=== PATIENT | female | born 1965 | race Caucasian/White ===

== ENCOUNTER 2019-09-30 11:03 | Outpatient (CLI) | payer OTHER, SELFPAY ==
--- NOTE | ~2019-09-30 | MM_ITS ---
EXAMINATION: MM screening [place] BI w meseret HISTORY: Screening mammogram TECHNIQUE: Craniocaudal and mediolateral oblique 3-D tomosynthesis images were obtained and synthetic 2-D images were generated. CAD analysis was submitted and interpreted. COMPARISON: Comparison to multiple prior studies sequentially, with oldest reviewed study dated 11/01. BREAST PARENCHYMAL COMPOSITION: The breasts are heterogeneously dense, which may obscure small masses . FINDINGS: There is no evidence of suspicious mass, calcification, or architectural distortion to sugg est malignancy in either breast. There has been no suspicious interval change. IMPRESSION: 1. No mammographic evidence of malignancy. 2. Recommend routine screening mammography in one year. BI-RADS Category 1: Negative Reviewed, dictated and finalized at location A.
== END 2019-09-30 11:04 | disposition home or self-care (01) ==
PROVIDERS: PCP Internal Medicine; Visit Provider Obstetrics & Gynecology
DX: Z12.31 Encounter for screening mammogram for malignant neoplasm of breast (principal)
CPT/HCPCS: 77063; 77067

== ENCOUNTER 2020-10-03 10:31 | Outpatient (CLI) | payer OTHER, SELFPAY ==
--- NOTE | ~2020-10-03 | MM_ITS ---
EXAMINATION: MM screening [place] BI w meseret HISTORY: Screening TECHNIQUE: Craniocaudal and mediolateral oblique 3-D tomosynthesis images were obtained and synthetic 2-D images were generated. CAD analysis was submitted and interpreted. COMPARISON: Comparison to multiple prior studies sequentially, with oldest reviewed study dated 11/01. BREAST PARENCHYMAL COMPOSITION: The breasts are heterogeneously dense, which may obscure small masses . FINDINGS: There is no evidence of suspicious mass, calcification, or architectural distortion to sugg est malignancy in either breast. There has been no suspicious interval change. IMPRESSION: 1. No mammographic evidence of malignancy. 2. Recommend routine screening mammography in one year. BI-RADS Category 1: Negative Reviewed, dictated and finalized at location A.
== END 2020-10-03 10:32 | disposition home or self-care (01) ==
PROVIDERS: PCP Internal Medicine; Visit Provider Obstetrics & Gynecology
DX: Z12.31 Encounter for screening mammogram for malignant neoplasm of breast (principal)
CPT/HCPCS: 77063; 77067

== ENCOUNTER 2021-08-03 12:42 | Emergency (ER) | payer OTHER, SELFPAY ==
--- NOTE | 2021-08-03 12:45 | ED.GENADULT ---
HPI - General Adult General Chief complaint: Upper Respiratory Infection Stated complaint: nasal congestion,sorethroat Time Seen by Provider: 08/03/21 12:45 Source: patient Mode of arrival: ambulatory Limitations: no limitations History of Present Illness HPI narrative: 55-year-old female patient presents to the [facility] with complaints of cold symptoms for the past 3 to 4 days. Patient states she has had a cough, runny nose, congestion, sore throat and a fever that has gotten as high as 102. Patient states she had a low-grade fever this morning of 99. Patient states she is feeling better today. Patient states she does have a cardiac cath scheduled for this week because she is currently in A. fib. Patient states she wanted to come in to make sure she did not have any strep or flu before receiving her procedure this week. Patient was diagnosed with COVID in May. Patient is vaccinated against COVID and influenza. Related Data Home Medications Medication Instructions Recorded Confirmed sertraline 50 mg tablet 50 mg PO DAILY 07/01/20 metoprolol succinate 25 mg PO DAILY 08/03/21 08/03/21 rivaroxaban [Xarelto] 20 mg DAILY 08/03/21 08/03/21 Allergies Allergy/AdvReac Type Severity Reaction Status Date / Time NO KNOWN DRUG ALLERGIES Allergy Unknown Y Uncoded 08/03/21 13:23 (Class Allergy) Review of Systems Review of Systems: CONSTITUTIONAL: Positive subjective fever, chills, or sweats. EYES: Denies visual changes, redness, or discharge. ENT: Positive rhinorrhea, congestion, sore throat, denies otalgia. CARDIOVASCULAR: Denies chest pain, palpitations, or edema. RESPIRATORY: Positive cough, denies dyspnea. GASTROINTESTINAL: Denies abdominal pain, nausea, vomiting, or diarrhea. GENITOURINARY: Denies dysuria or hematuria. SKIN: Denies rash or itching. MUSCULOSKELETAL: Denies back pain, joint pain, or myalgia. NEUROLOGIC: Denies headache, numbness, or weakness. PSYCHIATRIC: Denies anxiety or depression. [facility] Past Medical History Medical History Acquired pes planovalgus Posterior tibial tendon dysfunction (PTTD) of left lower extremity Wears glasses Family History Family History Other Arthritis Asthma Carcinoma of colon Cerebrovascular accident Depression Diabetes mellitus Hypertension Social History Social History Smoking status: Never smoker Alcohol intake: current Alcohol use details: 6 per year Substance use: unknown Gender identity (if verbalized by the patient): Female Comments At the time of my signature I agree with nursing past medical history, surgical, social, and family history. There is no relevant family history pertinent to the presenting complaint. Exam Narrative: GENERAL: Well-appearing, well-nourished, and in no acute distress. HEAD: Normocephalic, atraumatic. EYES: PERRLA and EOMI. ENT: Nares with erythema and edema noted bilaterally, no rhinorrhea or epistaxis. Mucous membranes moist. Posterior pharynx with no erythema, tonsillar lodgment, exudates or lesions present. Bilateral TMs are clear with no erythema or foreign bodies to the canal. NECK: Supple. No lymphadenopathy CHEST: Clear to auscultation. No respiratory distress. HEART: Irregular rate and rhythm. No murmur heard. Normal peripheral pulses. ABDOMEN: Soft, nontender, nondistended, normal active bowel sounds. EXTREMITIES: Normal range of motion. No edema. SKIN: Warm, dry, no rash. NEURO: No focal deficits. Alert and oriented x3. Course Course Level of Care: Express Care Visit Vital Signs Vital signs: Vital Signs Temperature 36.9 C 08/03/21 13:11 Pulse Rate 101 H 08/03/21 13:11 Respiratory Rate 18 08/03/21 13:11 Blood Pressure 99/72 L 08/03/21 13:11 Pulse Oximetry 97 08/03/21 13:11 Temperature 36.9 C 08/03/21
[2021-08-03 13:11] VITALS: BP 99/72; PULSE 101; RESP 18; TEMP 36.9; O2SAT 97
== END 2021-08-03 13:41 | disposition home or self-care (01) ==
PROVIDERS: Emergency Provider Nurse Practitioner Family; PCP Internal Medicine
DX: J06.9 Acute upper respiratory infection, unspecified (principal)
CPT/HCPCS: 87081; 87804; 87880; 99213; G0463

== ENCOUNTER 2022-02-21 12:11 | Outpatient (CLI) | payer OTHER, SELFPAY ==
--- NOTE | ~2022-02-21 | MM_ITS ---
EXAMINATION: MM screening [place] BI w meseret HISTORY: Screening mammogram TECHNIQUE: Craniocaudal and mediolateral oblique 3-D tomosynthesis images were obtained and synthetic 2-D images were generated. CAD analysis was submitted and interpreted. COMPARISON: 10/03/2020, 09/30/2019 bilateral screening mammogram examinations BREAST PARENCHYMAL COMPOSITION: The breasts are heterogeneously dense, which may obscure small masses . FINDINGS: There is no evidence of suspicious mass, calcification, or architectural distortion to sugg est malignancy in either breast. There has been no suspicious interval change. IMPRESSION: 1. No mammographic evidence of malignancy. 2. Recommend routine screening mammography in one year. BI-RADS Category 1: Negative Reviewed, dictated and finalized at location A. LOADER
== END 2022-02-21 12:12 | disposition home or self-care (01) ==
LOC: ANHIMG 12:16
PROVIDERS: PCP Internal Medicine; Visit Provider Obstetrics & Gynecology
DX: Z12.31 Encounter for screening mammogram for malignant neoplasm of breast (principal)
CPT/HCPCS: 77063; 77067

== ENCOUNTER → 2022-04-22 15:32 | Outpatient (CLI) | payer OTHER, SELFPAY ==
--- NOTE | ~2022-04-22 | MR_ITS ---
EXAMINATION: MR foot LT wo con DATE: 04/22/2022 16:25 INDICATION: Lateral left midfoot pain TECHNIQUE: Magnetic resonance imaging (MRI) of the left mid and hindfoot was performed without intrav enous contrast. Sequences included sagittal T1-weighted FSE, sagittal fluid sensitive FSE STIR, coron al PD-weighted FS FSE, coronal T1-weighted FSE, axial PD-weighted FS FSE, and axial PD-weighted FSE. COMPARISON: None. FINDINGS: Medial ankle ligaments: Thickening of the deep and superficial deltoid ligaments, the former with blurring of the normally mo re sharply defined striated pattern. Similarly there is thickening of the superomedial component of t he spring ligament complex. There is no associated soft tissue edema suggesting these findings are re lated to chronic sprains. The medial plantar oblique and infra plantar lateral components of the spri ng ligament complex are normal. Lateral ankle ligaments: The anterior and posterior inferior tibiofibular ligaments are normal. Mild thickening of the anterio r talofibular ligament. More prominent thickening and mild increased signal at the fibular side of th e calcaneofibular ligament. There is surrounding soft tissue edema To be consistent with potentially recent low to moderate grade sprains/partial tears Midfoot ligaments: The Lis Franc ligament complex is normal. There is increased fluid signal and loss of the normal T1 h yperintense fat signal at the sinus Tarsi which can be seen with sinus Tarsi syndrome. The intraosseo us talocalcaneal and cervical ligaments appear to remain intact. Tendons: Achilles tendon is normal. The peroneus longus and brevis tendons are normal. The tibialis anterior a nd extensor hallucis longus and extensor digitorum longus tendons are normal. The tibialis posterior, flexor digitorum longus and flexor hallucis longus tendons are normal. Plantar fascia: Mild thickening and minimal increased signal of the proximal plantar aponeurosis with small plantar c alcaneal spurs origin consistent with mild chronic enthesopathy. No surrounding marrow or soft tissue edema to suggest acute plantar fasciitis. Bones/other: Bone alignment is normal. No fracture, osteonecrosis or pathologic marrow replacing process. Moderate osteoarthritis with associated subarticular edema-like signal changes at the second tarsal metatarsa l joint and the articulation between the lateral cuneiform and the cuboid. Mild calcaneocuboid osteoa rthritis with additional small focus of subarticular edema-like signal change at the dorsolateral art icular surface of the cuboid. Mild osteoarthritis at the remaining tarsal metatarsal joints. Fluid: No joint effusions or other abnormal loculated fluid collections. There is subcutaneous edema primari ly anterior and lateral to the ankle. IMPRESSION: 1. Scarring consistent with likely chronic sprain of the deep and superficial deltoid ligaments and t he superomedial component of the spring ligament complex. . 2. Additional likely partial tear of the anterior talofibular and calcaneofibular ligaments but with mild surrounding edema which could be related to more recent injury/reinjury. 3. Increased fluid signal and loss of the normal fat signal at the sinus Tarsi which can be seen with sinus Tarsi syndrome. Cervical and interosseous talocalcaneal ligaments remain intact. 4. 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 Line 5. Mild chronic enthesopathy at the samuel caneal origin of the plantar aponeurosis. Reviewed, dictated and finalized at location A. ECTOR GOLF BALL
== END ==
PROVIDERS: Visit Provider Podiatrist Foot & Ankle Surgery
DX: M25.579 Pain in unspecified ankle and joints of unspecified foot (principal); M15.9 Polyosteoarthritis, unspecified; M77.32 Calcaneal spur, left foot; R93.6 Abnormal findings on diagnostic imaging of limbs
CPT/HCPCS: 73718

== ENCOUNTER 2023-04-12 01:15 | Day surgery (SDC) | payer OTHER, SELFPAY ==
[2023-04-06 10:13] VITALS: BMI 44.6
--- NOTE | 2023-04-09 10:13 | SUR.PREOP ---
Patient called regarding upcoming procedure. Reviewed preop instructions, appointment times, and procedure prep.
[2023-04-12 09:38] VITALS: BP 146/79; PULSE 62; RESP 18; TEMP 36.1; O2SAT 97
[2023-04-12] MEDS: LACTATED RINGERS 1,000 ML 150 ML IV CONT (09:46)
--- NOTE | 2023-04-12 10:04 | WPDANESEPPF ---
Anes - Initial Pre Proc Eval Procedure: Operation Date: 04/12/23 10:30 Proposed Procedures p Esophagogastroduodenoscopy & Screening Colonoscopy - Fox Warren MD Date/Time: 04/12/23 10:04 Surgeon: Fox Warren MD Pre Op Diagnosis: Dysphagia,Oropharyngeal phase, Neoplasm screening Patient Data Age: 57 Gender: F Height: 1.63 m Weight: 124 kg Last Vital Signs Temp 97 F L 04/12/23 09:38 Pulse 62 04/12/23 09:38 Resp 18 04/12/23 09:38 BP 146/79 H 04/12/23 09:38 Pulse Ox 97 04/12/23 09:38 O2 Del Method Room Air 04/12/23 09:38 Allergies Allergy/AdvReac Type Severity Reaction Status Date / Time NO KNOWN DRUG ALLERGIES Allergy Unknown Y Uncoded 04/12/23 09:37 (Class Allergy) Home Medications Medication Instructions Recorded Confirmed Type sertraline 50 mg tablet 50 mg PO DAILY 07/01/20 04/06/23 History rivaroxaban 20 mg tablet (Xarelto) 20 mg DAILY 08/03/21 04/12/23 History metoprolol succinate 25 mg See Rx Instructions .Route 02/02/23 04/06/23 Rx tablet,extended release 24 hr .COMPLEX #30 tabs Patient hx anesthesia problems: none Family hx anesthesia problems: none Results Review: All pre-operative results and documents have been reviewed as part of the pre-operative evaluation. [facility] Past Medical History Medical History (Updated 02/16/23 @ 15:46 by Ghada Jaramillo APRN) Acquired pes planovalgus Anxiety and depression Choking episode History of atrial fibrillation Obesity Oropharyngeal dysphagia Posterior tibial tendon dysfunction (PTTD) of left lower extremity Screening for colon cancer Screening mammogram, encounter for Wears glasses Surgical History Surgical History History of cardiac radiofrequency ablation (09/23/21) heart ablation, 09/24 History of colposcopy (~1999) colposcopy LGSIL History of gynecological procedure (01/31/08) Cervical mass biopsy - granulation tissue History of gynecological procedure (02/21/08) Cervical mass - leiomyoma Family History Family History Grandparent Cerebrovascular accident paternal grandfather Carcinoma of colon paternal grandfather Other Arthritis Asthma Depression Diabetes mellitus Hypertension Social History Social History Smoking status: Never smoker Second hand tobacco smoke exposure: No Alcohol intake: never Alcohol use details: 4 per year Substance use: never Substance use type: does not use Lack of Transportation: No Lack of Food: Never True Current Housing: I Have Housing Concerned About Future Housing: No Difficulty Paying Gas/Electric Bills: No Difficulty Paying for Meds: No Currently Unemployed: No Education: Master's Degree or Higher Difficulty w/ Childcare or Family Care: No Living arrangements: with family Additional living arrangements comments: Occupation/Education: occupation Additional occupation/education comments: teacher Gender identity (if verbalized by the patient): Female Sexual Orientation (if Verbalized by the Patient): Straight or Heterosexual Spiritual care concerns: No Anes - Eval Final PreProcedure Day of Procedure 04/12/23 10:04 Patient weight: morbidly obese Heart: regular rate and rhythm Lungs: clear to auscultation Airway: Mallampati scale class II Neurological: alert and oriented Last oral intake: >/= 8 hours ASA classification: III Emergent: no Anesthetic plan: proceed Anesthesia type and monitoring: general GIVS and standard monitoring Results Review: All pre-operative results and documents have been reviewed as part of the pre-operative evaluation. Informed Consent: The patient's anesthetic plan and its attendant risks and benefits were discussed with the patient/family/POA. Questions w
--- NOTE | 2023-04-12 10:21 | PM.HPGS ---
History of Present Illness History of Present Illness Consent: Risks, benefits, and alternatives have been discussed and questions answered. Patient agrees to proceed with procedure. Chief complaint: Dysphagia,Oropharyngeal phase, Neoplasm screening Narrative: Natali Kim is a 57 year old female here for first egd and colonoscopy, had episodes of choking after eating Review of Systems Constitutional: Constitutional: Denies headache(s) and Denies weakness Eyes: Eyes: Denies blurry vision ENT: Reports Normal hearing present, Denies headache(s) and Denies neck pain Cardiovascular: Cardiovascular: Denies chest pain and Denies dyspnea Respiratory: Respiratory: Denies dyspnea Gastrointestinal: Gastrointestinal: Reports no additional gastrointestinal complaints Genitourinary: Genitourinary: Denies dysuria Musculoskeletal: Musculoskeletal: Denies neck pain Integumentary/Breasts: Skin/Breast: Denies dry skin Neurologic: Reports Normal hearing present, Denies headache(s) and Denies weakness Psychiatric: Psychiatric: Denies anxiety Endocrine: Endocrine: Denies change in body appearance Hematologic/Lymphatic: Hematologic/Lymphatic: Denies easy bleeding Allergic/Immunologic: Allergic/Immunologic: Denies urticaria PMF Past Medical History Medical History (Updated 02/16/23 @ 15:46 by Ghada Jaramillo APRN) Acquired pes planovalgus Anxiety and depression Choking episode History of atrial fibrillation Obesity Oropharyngeal dysphagia Posterior tibial tendon dysfunction (PTTD) of left lower extremity Screening for colon cancer Screening mammogram, encounter for Wears glasses Surgical History Surgical History History of cardiac radiofrequency ablation (09/23/21) heart ablation, 09/24 History of colposcopy (~1999) colposcopy LGSIL History of gynecological procedure (01/31/08) Cervical mass biopsy - granulation tissue History of gynecological procedure (02/21/08) Cervical mass - leiomyoma Family History Family History Grandparent Cerebrovascular accident paternal grandfather Carcinoma of colon paternal grandfather Other Arthritis Asthma Depression Diabetes mellitus Hypertension Social History Social History Smoking status: Never smoker Second hand tobacco smoke exposure: No Alcohol intake: never Alcohol use details: 4 per year Substance use: never Substance use type: does not use Lack of Transportation: No Lack of Food: Never True Current Housing: I Have Housing Concerned About Future Housing: No Difficulty Paying Gas/Electric Bills: No Difficulty Paying for Meds: No Currently Unemployed: No Education: Master's Degree or Higher Difficulty w/ Childcare or Family Care: No Living arrangements: with family Additional living arrangements comments: Occupation/Education: occupation Additional occupation/education comments: teacher Gender identity (if verbalized by the patient): Female Sexual Orientation (if Verbalized by the Patient): Straight or Heterosexual Spiritual care concerns: No Meds Home Medications and Allergies Home Medications Medication Instructions Recorded Confirmed Type sertraline 50 mg tablet 50 mg PO DAILY 07/01/20 04/06/23 History rivaroxaban 20 mg tablet (Xarelto) 20 mg DAILY 08/03/21 04/12/23 History metoprolol succinate 25 mg See Rx Instructions .Route 02/02/23 04/06/23 Rx tablet,extended release 24 hr .COMPLEX #30 tabs Allergies Allergy/AdvReac Type Severity Reaction Status Date / Time NO KNOWN DRUG ALLERGIES Allergy Unknown Y Uncoded 04/12/23 09:37 (Class Allergy) Vital Signs Vital Signs - 24 hr 04/12/23 09:38 Temperature 97 F L Pulse Rate 62 Respiratory Rate 18 Blood Pressure 146/79 H Pulse Oximetry 97 Ox
--- NOTE | 2023-04-12 10:30 | SUR.OPER ---
EGD- START:1030 END:1033, COLONOSCOPY- START:1038 END:1046
[2023-04-12 10:48] VITALS: BP 112/74; PULSE 72; RESP 18; O2SAT 100
[2023-04-12 10:58] VITALS: BP 114/82; PULSE 70; RESP 18; O2SAT 100
== END 2023-04-12 11:14 | disposition home or self-care (01) ==
PROVIDERS: PCP Physician Assistant Medical; Visit Provider Internal Medicine Gastroenterology
PROC: 0DJ08ZZ Inspection of Upper Intestinal Tract, Via Natural or Artificial Opening Endoscopic (ICD-10-PCS; CPT 43235; principal; 2023-04-12 10:30)
DX: Z12.11 Encounter for screening for malignant neoplasm of colon (principal); K21.00 Gastro-esophageal reflux disease with esophagitis, without bleeding; K29.50 Unspecified chronic gastritis without bleeding; F41.8 Other specified anxiety disorders; E66.01 Morbid (severe) obesity due to excess calories; Z68.42 Body mass index [BMI] 45.0-49.9, adult; Z79.01 Long term (current) use of anticoagulants; Z98.890 Other specified postprocedural states; Z86.79 Personal history of other diseases of the circulatory system; Z82.49 Family history of ischemic heart disease and other diseases of the circulatory system; Z80.0 Family history of malignant neoplasm of digestive organs
CPT/HCPCS: 43239; 45378; 88305; J2704; J7120

== ENCOUNTER 2023-06-02 15:08 | Outpatient (CLI) | payer OTHER, SELFPAY ==
--- NOTE | ~2023-06-02 | MM_ITS ---
EXAMINATION: MM screening [place] BI w meseret HISTORY: Screening TECHNIQUE: Craniocaudal and mediolateral oblique 3-D tomosynthesis images were obtained and synthetic 2-D images were generated. CAD analysis was submitted and interpreted. COMPARISON: No prior mammogram is available for comparison at this institution. BREAST PARENCHYMAL COMPOSITION: Dense: The breasts are extremely dense, which lowers the sensitivity of mammography. FINDINGS: There is no evidence of suspicious mass, calcification, or architectural distortion to sugg est malignancy in either breast. There has been no suspicious interval change. IMPRESSION: 1. No mammographic evidence of malignancy. 2. Recommend routine screening mammography in one year. BI-RADS Category 1: Negative Reviewed, dictated and finalized at location A. HING ASSISTANT
== END 2023-06-02 15:09 | disposition home or self-care (01) ==
LOC: ANHIMG 15:09
PROVIDERS: PCP Physician Assistant Medical; Visit Provider Obstetrics & Gynecology
DX: Z12.31 Encounter for screening mammogram for malignant neoplasm of breast (principal)
CPT/HCPCS: 77063; 77067

== ENCOUNTER 2024-07-28 15:24 | Outpatient (CLI) | payer OTHER, SELFPAY ==
--- NOTE | ~2024-07-28 | MM_ITS ---
EXAMINATION: MM screening [place] BI w meseret HISTORY: Screening TECHNIQUE: Craniocaudal and mediolateral oblique 3-D tomosynthesis images were obtained and synthetic 2-D images were generated. CAD analysis was submitted and interpreted. COMPARISON: Comparison to multiple prior studies sequentially, with oldest reviewed study dated 09/30. BREAST PARENCHYMAL COMPOSITION: Dense: The breasts are heterogeneously dense, which may obscure small masses FINDINGS: There are developing clustered punctate calcifications outer aspect of the left breast, bes t seen on CC view. The right breast is stable without evidence for malignancy. IMPRESSION: 1. Developing cluster of left breast calcifications in the outer aspect of the left breast on CC view . 2. Magnification views are recommended. BI-RADS Category 0: Incomplete: Needs additional imaging evaluation. Reviewed, dictated and finalized at location A. IMPRESSION: 1. Developing cluster of left breast calcifications in the outer aspect of the left breast on CC view. 2. Magnification views are recommended. BI-RADS Category 0: Incomplete: Needs additional imaging evaluation.
--- OUTSIDE RECORDS SUMMARY | 2024-07-28 15:28 | XMS_ITS | Clinical Summary ---
Author Organization [facility] Address [address] [place] [address] Care Team Providers Care Launch Engineer Name Role Phone Ingrid Clinton PA-C Primary Care Provider +1- [phone] Allergies No known active allergies Medications metoprolol succinate ER 25 MG 24 hr tablet Take 1 tablet (25 mg total) by mouth daily. 03/21/20 21 Active sertraline 50 MG tablet Take 1 tablet (50 mg total) by mouth daily. 02/07/20 21 Active probiotic Cap capsule Take 1 capsule by mouth daily with breakfast. Active Docusate Sodium 100 MG Tab Take 200 tablets by mouth daily. Active rivaroxaban (XARELTO) 20 MG Tab tablet Take 1 tablet (20 mg total) by mouth daily with supper. 90 tablet 3 07/11/19 25 Active magnesium oxide 400 MG tablet Take 1 tablet (400 mg total) by mouth daily. 09/19/19 21 025 Discontinued(Pt . elected to discontinue med) Cyanocobalamin (VITAMIN B-12 OR) Take 5,000 mcg by mouth daily. 025 Discontinued(Pt . elected to discontinue med) Biotin 1000 MCG Tab Take 1 tablet by mouth daily. 025 Discontinued(Pt . elected to discontinue med) [place]-3 Fatty Acids (OMEGA-3 FISH OIL OR) Take 2,000 mg by mouth daily. 025 Discontinued(Pt . elected to discontinue med) Cholecalcifero l (VITAMIN D3) 50 MCG (1999 [place]) Tab Take by mouth daily. 025 Discontinued(Pt . elected to discontinue med) multi vitamin/minera ls tablet Take 1 tablet by mouth daily. 025 Discontinued(Pt . elected to discontinue med) Bisacodyl (LAXATIVE OR) Take by mouth daily. 025 Discontinued(Pt . elected to discontinue med) rivaroxaban (XARELTO) 20 MG Tab tablet Take 1 tablet (20 mg total) by mouth daily with supper. Take with food 90 tablet 3 05/24/19 24 025 Discontinued Active Problems Problem Noted Date Diagnosed Date Atrial fibrillation ([facility]) 08/17/2020 Encounters Date Type Department Care Team Description 07/24/2024 3:00 PM CDT Office Visit [facility] [address] [place] [address] Kojo Montanez MD Atrial Fibrillation; Cardiomyopathy; Lipids 07/24/2024 Travel 07/11/2024 Telephone [facility], [address] [address] Vicky De CMA Prior Authorization (xarelto) 06/15/2024 11:25 AM CDT Laboratory Only [facility] [address] [place] [address] Ingrid Clinton PA-C Defrain, Chad J, MD 06/15/2024 11:23 AM CDT - 06/15/2024 11:59 PM CDT Hospital Encounter [facility] [address] [place] [address] Ingrid Clinton PA-C Discharge Disposition: Home or Self Care (Routine Discharge) 06/15/2024 Orders Only [facility] [address] [place] [address] Ingrid Clinton PA-C 06/15/2024 Travel 06/08/2024 Travel from Last 3 Months Family History Medical History Relation Comments Stent Cardiac Father Heart Attack Maternal Grandfather Stroke Paternal Grandfather Relation Status Comments Brother Alive Father Alive Maternal Grandfather Mother Alive Paternal Grandfather Social History Tobacco Use Types Packs/Day Years Used Date Smoking Tobacco: Never Smokeless Tobacco: Never Alcohol Use Standard Drinks/Week Comments Not Currently 0 (1 standard drink = 0.6 oz pur e alcohol) Comments Unknown Sex and Gender Information Value Date Recorded Sex Assigned at Not on file Legal Sex Female 5:49 PM CDT Gender Identity Female 04/22/2021 9:13 AM FINGERER Sexual Orientation Straight 04/22/2021 9: 13 AM FINGERER Last Filed Vital Signs Vital Sign Reading Time Taken Comments Blood Pressure 120/70 07/24/2024 3:04 PM CDT Pulse 57 07/24/2024 3:04 PM CDT Temperature 37.1 C (98.7 F) 09/23/2021 1:15 PM CDT Respiratory Rate 24 09/23/2021 4:30 PM CDT Oxygen Saturation 95% 05/17/2023 3:08 PM FINGERER Inhaled Oxygen Concentration - - Weight 123.8 kg (273 lb) 07/24/2024 3:04 PM CDT Height 162.6 cm (5' 4 ) 07/24/2024 3:04 PM CDT Body Mass Index 46.86 07/24/2024 3:04 PM CDT Plan of Treatment Upcoming Encounters Date Type Department Care Team (Late st Contact Info) Description 07/30/2025 3:00 PM CDT Office Visit [facility] [address] [place] [phone] Kojo Montanez MD [facility]. [address] [address] Health Maintenance Due Date Last Done Comments Cervical Cancer Screening Pa p Smear (Age 30 to 64) Every 3 Years 1967 Colorectal Cancer Screening Colonoscopy (10 Years) 1967 Annual Physical 09/01/1970 Hepatitis C 09/01/1985 DTaP, Tdap and Td Vaccines ( 1 - Tdap) 09/01/1986 Hepatitis B Vaccines (1 of 3 - 19+ 3-dose series) 09/01/1986 Cervical Cancer Screening Pa p with HPV Testing (Age 30 to 64) Every 5 Years 09/01/1997 Cervical Cancer Screening wi th HPV 09/01/1997 Mammogram Screening 2007 Pneumococcal Vaccine: 50+ Years (1 of 1 - PCV) 09/01/2017 Zoster Vaccines (1 of 2) 09/01/2017 COVID-19 Vaccine (2023-2 5 season) 2023 01/02/2021, 06/04/2020, 05/07/2020 Meningococcal B Vaccine Aged Out No l onger eligible based on patient's age to complete this topic Meningococcal Vaccine Aged Out No balbina sana eligible based on patient's age to complete this topic RSV Immunizations Under 20 Months Aged Out No longer eligible b ased on patient's age to complete this topic Procedures Procedure Name Priority Date/Time Associated Diagnosis Comments MAGNESIUM Routine 06/15/2024 11:29 AM CDT Anxiety disorder, unspecified Depression, unspecified Obesity, unspecified Sleep apnea, unspecified Encounter for general adult medical examination without abnormal findings Other fatigue VITAMIN B-12 Routine 06/15/2024 11:29 AM CDT Anxiety disorder, unspecified Depression, unspecified Obesity, unspecified Sleep apnea, unspecified Encounter for general adult medical examination without abnormal findings Other fatigue THYROID STIM HORMONE TSH Routine 06/15/2024 11:29 AM CDT Anxiety disorder, unspecified Depression, unspecified Obesity, unspecified Sleep apnea, unspecified Encounter for general adult medical examination without abnormal findings Other fatigue LIPID PANEL Routine 06/15/2024 11:29 AM CDT Anxiety disorder, unspecified Depression, unspecified Obesity, unspecified Sleep apnea, unspecified Encounter for general adult medical examination without abnormal findings Other fatigue COMPREHENSIVE METABOLIC PANEL Routine 06/15/2024 11:29 AM CDT Anxiety disorder, unspecified Depression, unspecified Obesity, unspecified Sleep apnea, unspecified Encounter for general adult medical examination without abnormal findings Other fatigue VITAMIN D, 25 OH Routine 06/15/2024 11:2 9 AM CDT Anxiety disorder, unspecified Depression, unspecified Obesity, unspecified Sleep apnea, unspecified Encounter for general adult medical examination without abnormal findings Other fatigue CBC W/DIFF AUTOMATED Routine 06/15/2024 11:29 AM CDT Anxiety disorder, unspecified Depression, unspecified Obesity, unspecified Sleep apnea, unspecified Encounter for general adult medical examination without abnormal findings Other fatigue HEMOGLOBIN, GLYCOSYLATED Routine 06/15/2024 11:27 AM CDT from Last 3 Months Results * (ABNORMAL) VITAMIN B-12 (06/15/2024 11:29 AM CDT) VITAMIN B12 S/P/B 5,712(H) 193 - 986 PG/ML 06/15/2024 1:11 PM CDT [facility] 06/15/2024 11:2 9 AM CDT us Ingrid Clinton PA-C LABORATORY Final Resu lt [facility] [address] [place] [address], [place] [phone] * (ABNORMAL) COMPREHENSIVE METABOLIC PANEL (06/15/2024 11:29 AM CDT) GLUCOSE 94 70 - 99 MG/DL 06/15/2024 12:09 PM CDT [facility] BUN 18 7 - 18 MG/DL 06/15/2024 12:09 PM CDT [facility] CREATININE S/P/B 0.89 0.55 - 1.02 MG/DL 06/15/2024 12:09 PM CDT [facility] SODIUM S/P/B 141 136 - 145 MMOL/L 06/15/2024 12:09 PM CDT [facility] POTASSIUM S/P/B 3.9 3.5 - 5.1 MMOL/L 06/15/2024 12:09 PM [facility] CHLORIDE S/P/B 104 100 - 108 MMOL/L 06/15/2024 12:09 PM [facility] CO2 27.0 21 - 32 MMOL/L 06/15/2024 12:09 PM [facility] CALCIUM S/P/B 9.2 8.5 - 10.1 MG/DL 06/15/2024 12:09 PM [facility] BILIRUBIN TOTAL S/P/B 0.6 0.2 - 1.2 MG/DL 06/15/2024 12:09 PM [facility] TOTAL PROTEIN S/P/B 7.6 6.4 - 8.2 G/DL 06/15/2024 12:09 PM [facility] ALBUMIN S/P/B 4.0 3.4 - 5.0 G/DL 06/15/2024 12:09 PM [facility] AST 18 15 - 37 U/L 06/15/2024 12:09 PM [facility] ALT 33 14 - 55 U/L 06/15/2024 12:09 PM [facility] ALKALINE PHOSPHATASE S/P/B 104 50 - 136 U/L 06/15/2024 12:09 PM [facility] ANION GAP 10.0 5 - 15 MMOL/L 06/15/2024 12:09 PM [facility] BUN CREATININE RATIO 20.2 6 - 26 06/15/2024 12:09 PM [facility] A/G RATIO 1.1 1.0 - 2.0 RATIO 06/15/2024 12:09 PM [facility] GFR ESTIMATE 76(L) >90 ML/MIN/1.7 3 M2 06/15/2024 12:09 PM CDT [facility] Comment: NOTE: eGFR is not calculated for patients <18 years of age. This is an estimated GFR calculation using the new CKD EPI creatinine equation without race and so does not require a correction factor for race. This estimated GFR should not be used for calculating drug doses. 06/15/2024 11:2 9 AM CDT us Ingrid Clinton PA-C LABORATORY Final Resu lt [facility] [address] [place] [address], [place] [phone] * (ABNORMAL) LIPID PANEL (06/15/2024 11:29 AM CDT) CHOLESTEROL 205(H) <200.0 MG/DL 06/15/2024 12:09 PM CDT [facility] TRIGLYCERIDES 106 <150 MG/DL 06/15/2024 12:09 PM T [facility] HDL 54 >40.0 MG/DL 06/15/2024 12:09 PM T [facility] LDL (CALCULATED) 130(H) <100 MG/DL 06/15/2024 12:09 PM T [facility] NON HDL CHOLESTEROL 151(H) <130 MG/DL 06/15/2024 12:09 PM T [facility] CHOL/HDL RATIO 3.8 0.0 - 4.5 06/15/2024 12:09 PM T [facility] VLDL CALCULATION 21 5 - 55 MG/DL 06/15/2024 12:09 PM T [facility] LIPID INTERPRETATION 06/15/2024 12:09 PM T [facility] Comment: NIH CONCENSUS REPORT RECOMMENDATIONS: ADULT CHILD LOW RISK: CHOLESTEROL <200 <170 TRIGLYCERIDE <150 --- HDL >=60 --- LDL <100 <110 BORDERLINE: CHOLESTEROL 200-239 170-199 TRIGLYCERIDE 150-199 --- HDL 40-59 --- LDL 100-159 110-129 HIGH RISK: CHOLESTEROL >=240 >=200 TRIGLYCERIDE >=200 --- HDL <40 --- LDL >=160 >=130 06/15/2024 11:2 9 AM CDT us Ingrid Clinton PA-C LABORATORY Final Resu lt [facility] [address] [place] [address], [place] [phone] * (ABNORMAL) CBC W/DIFF AUTOMATED (06/15/2024 11:29 AM CDT) WBC 4.69 4.4 - 11.0 x10'3/uL 06/15/2024 11:46 AM CDT [facility] RBC 4.44(L) 4.50 - 5.10 x10'6/uL 06/15/2024 11:46 AM CDT [facility] HGB 13.6 12.3 - 15.3 G/DL 06/15/2024 11:46 AM CDT [facility] HCT 40.9 35.9 - 44.6 % 06/15/2024 11:46 AM CDT [facility] MCV 92.1 80.0 - 96.0 FL 06/15/2024 11:46 AM CDT [facility] MCH 30.6 25.3 - 30.9 PG 06/15/2024 11:46 AM CDT [facility] MCHC 33.3 31.0 - 34.1 G/DL 06/15/2024 11:46 AM CDT [facility] RDW 13.2 12.4 - 15.1 % 06/15/2024 11:46 AM CDT [facility] PLT 164 151 - 353 x10'3/uL 06/15/2024 11:46 AM CDT [facility] MPV 9.6 9.6 - 12.0 FL 06/15/2024 11:46 AM CDT [facility] RBC MORPHOLOGY NORMAL 06/15/2024 11:46 AM CDT [facility] PLT MORPH. NORMAL 06/15/2024 11:46 AM CDT [facility] WBC MORPHOLOGY NORMAL 06/15/2024 11:46 AM CDT [facility] LYMPHOCYTES % 26.9 15.8 - 45.0 % 06/15/2024 11:46 AM CDT [facility] NEUTROPHILS % 64.6 42.1 - 71.9 % 06/15/2024 11:46 AM CDT [facility] MONOCYTES % 6.0 5.7 - 12.5 % 06/15/2024 11:46 AM CDT [facility] EOSINOPHILS 1.5 0.0 - 5.6 % 06/15/2024 11:46 AM CDT [facility] BASOPHILS 0.6 0.0 - 1.3 % 06/15/2024 11:46 AM CDT [facility] ABS. NEUTROPHILS 3.03 1.40 - 6.00 x10'3/uL 06/15/2024 11:46 AM CDT [facility] IMMATURE GRANS % 0.4 0.0 - 0.5 % 06/15/2024 11:46 AM CDT [facility] ABS. LYMPHOCYTES 1.26 0.80 - 4.70 x10'3/uL 06/15/2024 11:46 AM T [facility] 06/15/2024 11:2 9 AM CDT us Ingrid Clinton PA-C LABORATORY Final Resu lt [facility] [address] [place] [address], * THYROID STIM HORMONE TSH (06/15/2024 11:29 AM CDT) TSH 2.011 0.358 - 3.74 uIU/ML 06/15/2024 12:09 PM CDT [facility] Comment: HIGH DOSES OF BIOTIN MAY INTERFERE WITH THIS TEST RESULT. CORRELATION TO CLINICAL HISTORY AND PRESENTATION RECOMMENDED. 06/15/2024 11:2 9 AM CDT Ingrid Clinton PA-C LABORATORY Final Resu lt Performing Organization Address [facility]/ZIP Co de Phone Number [facility] [address] [place] [address], * VITAMIN D, 25 OH (06/15/2024 11:29 AM CDT) VITAMIN D 25 HYDROXY S/P/B 42 30 - 100 NG/ML 06/15/2024 1:17 PM CDT [facility] Comment: INTERPRETATION DEFICIENT <20 INSUFFICIENT 20-29 SUFFICIENT 30-100 06/15/2024 11:2 9 AM CDT Ingrid Clinton PA-C LABORATORY Final Resu lt [facility] [id number] [place] [address], [place] [phone] * MAGNESIUM (06/15/2024 11:29 AM CDT) MAGNESIUM 1.9 1.8 - 2.4 MG/DL 06/15/2024 12:09 PM CDT [facility] 06/15/2024 11:2 9 AM CDT us Ingrid Clinton PA-C LABORATORY Final Resu lt Performing Organization Address [facility]/ZIP Co de Phone Number [facility] [address] [place] [address], * HEMOGLOBIN, GLYCOSYLATED (06/15/2024 11:27 AM CDT) HGB A1C 5.3 <5.7 % 06/15/2024 1:15 PM CDT [facility] Comment: INCREASED RISK OF DIABETES <5.7% NON-DIABETES 5.7-6.4% INCREASED RISK FOR FUTURE DIABETES > OR = 6.5 CONSISTENT WITH DIABETES STANDARDS OF MEDICAL CARE IN DIABETES-2010 DIABETES CARE, 33(SUPP 1): S1-S61,2010 ESTIMATED AVG GLUCOSE 105 mg/dL 06/15/2024 1:15 PM CDT [facility] 06/15/2024 11:2 7 AM CDT us Mitchel Garcia MD LABORATORY Final Result Performing Organization Address [facility]/[employer]UST Co de Phone Number [facility] [address] [place] [address], [place] [phone] from Last 3 Months Insurance [phone] (Work) [phone] Advance Directives * Full Code (Latest Code Status on File) Date Activated Date Inactivated Comments 09/23/2021 12:44 PM 09/23/2021 6:59 PM * Full Code Date Activated Date Inactivated Comments 08/06/2021 3:32 PM 08/06/2021 7:15 PM Care Teams Launch Engineer Relationship Specialty Start Date End Date Ingrid Clinton PA-C PCP - General PHYSICIAN GO CART MECHANIC 03/14/21
--- OUTSIDE RECORDS SUMMARY | 2024-07-28 15:28 | XMS_ITS | Encounter Summary ---
Author Organization [facility] Address [address] [place] [address] Care Team Providers Care Director Of Financial Planning Name Role Phone Ingrid Clinton PA-C Primary Care Provider +1- [phone] Encounter Details Date Type Department Care Team (Late st Contact Info) Description 12/14/2016 Abstract [facility] CONVERSION [address] [place] [address] , Generic ConversionMD Social History Tobacco Use Types Packs/Day Years Used Date Smoking Tobacco: Never Assessed Comments Unknown Sex and Gender Information Value Date Recorded Sex Assigned at Not on file Legal Sex Female 5:49 PM CDT Gender Identity Female 04/22/2021 9:13 AM MANAGER DIESEL Sexual Orientation Straight 04/22/2021 9: 13 AM MANAGER DIESEL documented as of this encounter Plan of Treatment Upcoming Encounters Date Type Department Care Team (Late st Contact Info) Description 07/30/2025 3:00 PM CDT [facility] [address] [place] [phone] Kojo Montanez MD [address] [address] documented as of this encounter Visit Diagnoses Not on filedocumented in this encounter Care Teams Director Of Financial Planning Relationship Specialty Start Date End Date Ingrid Clinton PA-C PCP - General PHYSICIAN HELMINTHOLOGY TEACHER 03/14/21 documented as of this encounter
--- OUTSIDE RECORDS SUMMARY | 2024-07-28 15:28 | XMS_ITS | Encounter Summary ---
Author Organization [facility] Address [address] [place] [address] Care Team Providers Care Aircraft Servicer Name Role Phone Ingrid Clinton PA-C Primary Care Provider +1- [phone] Encounter Details Date Type Department Care Team (Late st Contact Info) Description 07/21/2023 [facility] [address] [id number] Arpita Gilmore MA Social History Tobacco Use Types Packs/Day Years Used Date Smoking Tobacco: Never Smokeless Tobacco: Never Alcohol Use Standard Drinks/Week Comments Not Currently 0 (1 standard drink = 0.6 oz pur e alcohol) Comments Unknown Sex and Gender Information Value Date Recorded Sex Assigned at Not on file Legal Sex Female 5:49 PM CDT Gender Identity Female 04/22/2021 9:13 AM SEMIAUTOMATIC STITCHER OPERATOR Sexual Orientation Straight 04/22/2021 9: 13 AM SEMIAUTOMATIC STITCHER OPERATOR documented as of this encounter Plan of Treatment Upcoming Encounters Date Type Department Care Team (Late st Contact Info) Description 07/30/2025 3:00 PM CDT [facility] [address] [place] [address] Kojo Montanez MD [facility]. [facility] [address] [place] [address] documented as of this encounter Procedures Procedure Name Priority Date/Time Associated Diagnosis Comments COMPREHENSIVE METABOLIC PANEL Routine 04/19/2023 LIPID PANEL Routine 04/19/2023 CBC, MANUAL DIFF Routine 04/19/2023 THYROID STIM HORMONE TSH Routine 04/19/2023 documented in this encounter Results * COMPREHENSIVE METABOLIC PANEL (04/19/2023) SODIUM S/P/B 141 GLUCOSE 86 mg/dL AST 21 BUN 10 CREATININE S/P/B 0.77 0.5 - 1.0 CALCIUM S/P/B 8.7 POTASSIUM S/P/B 4.3 CHLORIDE S/P/B 109 ALT 27 GFR ESTIMATE 91 us Default History Genericprovider LABORATORY Final Result * LIPID PANEL (04/19/2023) CHOLESTEROL 204 TRIGLYCERIDES 191 HDL 48 LDL (CALCULATED) 125 NON HDL CHOLESTEROL 156 us Default History Genericprovider LABORATORY Final Result * CBC, MANUAL DIFF (04/19/2023) WBC 4.7 HGB 13.0 HCT 38.5 PLT 174 us Default History Genericprovider LABORATORY Final Result * THYROID STIM HORMONE, TSH (04/19/2023) TSH 2.38 us Default History Genericprovider LABORATORY Final Result documented in this encounter Visit Diagnoses Not on filedocumented in this encounter Care Teams Aircraft Servicer Relationship Specialty Start Date End Date Ingrid Clinton PA-C PCP - General PHYSICIAN BLOCKER AND POLISHER GOLD WHEEL 03/14/21 documented as of this encounter
--- OUTSIDE RECORDS SUMMARY | 2024-07-28 15:28 | XMS_ITS | Encounter Summary ---
Author Organization [facility] Address [address] [place] [address] Care Team Providers Care Sales Program Manager Name Role Phone Ingrid Clinton PA-C Primary Care Provider +1- [phone] Encounter Details Date Type Department Care Team (Late st Contact Info) Description 08/05/2021 Hospital Orders Only [facility] Compressor Station Engineer Chief [address] [place] [address] Mata Jewell MD,PHD Social History Tobacco Use Types Packs/Day Years Used Date Smoking Tobacco: Never Smokeless Tobacco: Never Alcohol Use Standard Drinks/Week Comments Not Currently 0 (1 standard drink = 0.6 oz pur e alcohol) Comments Unknown Sex and Gender Information Value Date Recorded Sex Assigned at Not on file Legal Sex Female 5:49 PM CDT Gender Identity Female 04/22/2021 9:13 AM C CONSULTANT Sexual Orientation Straight 04/22/2021 9: 13 AM C CONSULTANT COVID-19 Exposure Response Date Recorded In the last 10 days, have yo u been in contact with someone who was confirmed or suspected to have Coronavirus/COVID-19? No / Unsure 08/06/2021 9:57 AM CDT documented as of this encounter Functional Status * Calculated C-SSRS Risk Score (Lifetime/Recent) Answer Date of Assessment Author Status No Risk Indicated 08/06/2021 10:30 AM CDT Talya Gomez , RN Active * [place] Suicide Severity Rating Scale (Screener/Recent Self-Report) Question Answer Date of Assessment Author Status 1. Wish to be (Past 1 Month) No 08/06/2021 10:30 AM CDT Talya Gomez RN Active 2. Non-Specific Active Suicidal Thoughts (Past 1 Month) No 08/06/2021 10:30 AM CDT Talya Gomez RN Active 6. Suicidal Behavior (Lifetime) No 08/06/2021 10:30 AM CDT Talya Gomez RN Active documented as of this encounter Plan of Treatment Upcoming Encounters Date Type Department Care Team (Late st Contact Info) Description 07/30/2025 3:00 PM CDT Office Visit [facility] [address] [place] [address] Kojo Montanez MD [address] [address] documented as of this encounter Visit Diagnoses Not on filedocumented in this encounter Care Teams Sales Program Manager Relationship Specialty Start Date End Date Ingrid Clinton PA-C PCP - General PHYSICIAN SLOT MANAGER 03/14/21 documented as of this encounter
--- OUTSIDE RECORDS SUMMARY | 2024-07-28 15:28 | XMS_ITS | Encounter Summary ---
Author Organization [facility] Address [facility] [place] [address] Care Team Providers Care Labor Employment Associate Name Role Phone Ingrid Clinton PA-C Primary Care Provider +1- [phone] Encounter Details Date Type Department Care Team (Late Contact Info) Description 09/28/2022 Enikos Message Enc [facility], [address] [address] Mychart, [facility] Provider Sleep Study Social History Tobacco Use Types Packs/Day Years Used Date Smoking Tobacco: Never Smokeless Tobacco: Never Alcohol Use Standard Drinks/Week Comments Not Currently 0 (1 standard drink = 0.6 oz pur e alcohol) Comments Unknown Sex and Gender Information Value Date Recorded Sex Assigned at Not on file Legal Sex Female 5:49 PM CDT Gender Identity Female 04/22/2021 9:13 AM PIGEON FANCIER Sexual Orientation Straight 04/22/2021 9: 13 AM PIGEON FANCIER documented as of this encounter Progress Notes * Keila Ibrahim RN - 09/29/2022 8:06 AM CDT Referral please Dr. Landen Rangel documented in this encounter Plan of Treatment Upcoming Encounters Date Type Department Care Team (Late Contact Info) Description 07/30/2025 3:00 PM CDT Office Visit [facility] [address] [place] [address] Kojo Montanez MD [facility]. [facility] [address] [place] [address] documented as of this encounter Visit Diagnoses Not on filedocumented in this encounter Care Teams Labor Employment Associate Relationship Specialty Start Date End Date Ingrid Clinton PA-C PCP - General PHYSICIAN ORDER PICKER 03/14/21 documented as of this encounter
--- OUTSIDE RECORDS SUMMARY | 2024-07-28 15:28 | XMS_ITS | Encounter Summary ---
Author Organization [facility] Address [address] [place] [address] Care Team Providers Care Integration Software Developer Name Role Phone Ingrid Clinton PA-C Primary Care Provider +1- [phone] Encounter Details Date Type Department Care Team (Late st Contact Info) Description 03/27/2021 Abstract [place] [facility], [address] [address] Arpita Gilmore MA Social History Tobacco Use Types Packs/Day Years Used Date Smoking Tobacco: Never Assessed Comments Unknown Sex and Gender Information Value Date Recorded Sex Assigned at Not on file Legal Sex Female 5:49 PM CDT Gender Identity Female 04/22/2021 9:13 AM BOTTOM LINER Sexual Orientation Straight 04/22/2021 9: 13 AM BOTTOM LINER documented as of this encounter Plan of Treatment Upcoming Encounters Date Type Department Care Team (Late st Contact Info) Description 07/30/2025 3:00 PM CDT [facility] [place] [facility] [address] [place] [address] Kojo Montanez MD [facility]. [address] [address] documented as of this encounter Procedures Procedure Name Priority Date/Time Associated Diagnosis Comments CBC (OUTSIDE LAB) Routine 03/14/2021 COMPREHENSIVE METABOLIC PANEL Routine 03/14/2021 THYROID STIM HORMONE TSH Routine 03/14/2021 MAGNESIUM Routine 03/14/2021 CBC (OUTSIDE LAB) Routine 09/16/2020 VITAMIN B-12 Routine 09/16/2020 COMPREHENSIVE METABOLIC PANEL Routine 09/16/2020 LIPID PANEL Routine 09/16/2020 THYROID STIM HORMONE TSH Routine 09/16/2020 VITAMIN D, 25 OH Routine 09/16/2020 MAGNESIUM Routine 09/16/2020 documented in this encounter Results * CBC (OUTSIDE LAB) (03/14/2021) WBC 5.3 HGB 13.8 HCT 42.5 PLT 205 03/14/2021 us [facility] Abstract LAB-OUTSIDE/ABSTRACTED Final Result * THYROID STIM HORMONE, TSH (03/14/2021) TSH 2.0 03/14/2021 us [facility] Abstract LABORATORY Final Result * MAGNESIUM (03/14/2021) MAGNESIUM 2.3 03/14/2021 us Doc [facility] Abstract LABORATORY Final Result * COMPREHENSIVE METABOLIC PANEL (03/14/2021) SODIUM S/P/B 146 POTASSIUM S/P/B 4.4 CO2 29 CHLORIDE S/P/B 112 GLUCOSE 104 mg/dL CALCIUM S/P/B 9.2 BUN 17 CREATININE S/P/B 0.93 0.5 - 1.0 ALKALINE PHOSPHATASE S/P/B 69 ALT 21 AST 20 BILIRUBIN TOTAL S/P/B 0.6 ALBUMIN S/P/B 4.4 3.5 - 5.0 TOTAL PROTEIN S/P/B 6.5 GLOBULIN 2.1 03/14/2021 us Doc [facility] Abstract LABORATORY Final Result * VITAMIN D, 25 OH (09/16/2020) VITAMIN D 25 HYDROXY S/P/B 28 09/16/2020 us Doc [facility] Abstract LABORATORY Final Result * VITAMIN B-12 (09/16/2020) VITAMIN B12 S/P/B >2,000 09/16/2020 us Doc [facility] Abstract LABORATORY Final Result * CBC (OUTSIDE LAB) (09/16/2020) Pathologist [facility] WBC 3.9 HGB 12.6 HCT 38.8 PLT 173 09/16/2020 Doc [facility] Abstract LAB-OUTSIDE/ABSTRACTED Final Result * THYROID STIM HORMONE, TSH (09/16/2020) TSH 2.78 09/16/2020 us Doc [facility] Abstract LABORATORY Final Result * MAGNESIUM (09/16/2020) Pathologist [facility] MAGNESIUM 1.8 09/16/2020 Doc [facility] Abstract LABORATORY Final Result * COMPREHENSIVE METABOLIC PANEL (09/16/2020) SODIUM S/P/B 142 POTASSIUM S/P/B 43 CO2 25 CHLORIDE S/P/B 108 GLUCOSE 88 mg/dL CALCIUM S/P/B 9.3 BUN 16 CREATININE S/P/B 0.90 0.5 - 1.0 EGFR AFR. AMER. 85 <=90 EGFR NON-AFR. AMER. 73 <=90 ALKALINE PHOSPHATASE S/P/B 69 ALT 23 AST 18 BILIRUBIN TOTAL S/P/B 0.9 ALBUMIN S/P/B 4.2 3.5 - 5.0 TOTAL PROTEIN S/P/B 6.8 GLOBULIN 2.6 09/16/2020 us Doc [facility] Abstract LABORATORY Final Result * LIPID PANEL (09/16/2020) CHOLESTEROL 188 HDL 43 TRIGLYCERIDES 122 NON HDL CHOLESTEROL 145 LDL (CALCULATED) 122 09/16/2020 us Doc [facility] Abstract LABORATORY Final Result documented in this encounter Visit Diagnoses Not on filedocumented in this encounter Care Teams Integration Software Developer Relationship Specialty Start Date End Date Ingrid Clinton PA-C PCP - General PHYSICIAN FULL STACK PYTHON DEVELOPER 03/14/21 documented as of this encounter
--- OUTSIDE RECORDS SUMMARY | 2024-07-28 15:28 | XMS_ITS | CONTINUITY OF CARE DOCUMENT ---
Author Name toya pittman Address Unknown Organization [facility] Address [address] [place] [address] Phone [phone] Care Team Providers Care Consultant Technology Name Role Phone toya pittman Unavailable Unavailable INSURANCE PROVIDERS Payer name Policy type / Coverage type Brian red constitution party ID [facility] [id number] Other [id number]
== END 2024-07-28 15:25 | disposition home or self-care (01) ==
LOC: ANHIMG 15:25
PROVIDERS: PCP Physician Assistant Medical; Visit Provider Obstetrics & Gynecology
DX: Z12.31 Encounter for screening mammogram for malignant neoplasm of breast (principal); R92.8 Other abnormal and inconclusive findings on diagnostic imaging of breast
CPT/HCPCS: 77063; 77067

== ENCOUNTER 2024-08-14 12:54 | Outpatient (CLI) | payer OTHER, SELFPAY ==
--- NOTE | ~2024-08-14 | MM_ITS ---
EXAMINATION: MM diagnostic [place] LT w meseret HISTORY: Left breast calcifications TECHNIQUE: Additional spot magnification images of the left breast were performed and synthetic 2-D i mages were generated. CAD analysis was submitted and interpreted. COMPARISON: 07/28/2024 BREAST PARENCHYMAL COMPOSITION:Dense: The breasts are heterogeneously dense, which may obscure small masses. FINDINGS: Spot magnifications demonstrate loosely grouped punctate microcalcifications. No pleomorphi c or suspicious clustered microcalcifications are seen. IMPRESSION: No mammographic evidence for malignancy. Benign-appearing microcalcifications, as above. BI-RADS Category 2: Benign finding(s). Reviewed, dictated and finalized at location M.
--- OUTSIDE RECORDS SUMMARY | 2024-08-14 13:00 | XMS_ITS | Encounter Summary ---
Author Organization [facility] Address [facility] [place] [address] Care Team Providers Care Battery Container Tester Aluminum Name Role Phone Ingrid Clinton PA-C Primary Care Provider +1- [phone] Encounter Details Date Type Department Care Team (Late Contact Info) Description 09/28/2022 Car Rentals Market Message Enc [place] [facility], [address] [address] Mychart, [facility] Provider Sleep Study Social History Tobacco Use Types Packs/Day Years Used Date Smoking Tobacco: Never Smokeless Tobacco: Never Alcohol Use Standard Drinks/Week Comments Not Currently 0 (1 standard drink = 0.6 oz pur e alcohol) Comments Unknown Sex and Gender Information Value Date Recorded Sex Assigned at Not on file Legal Sex Female 5:49 PM CDT Gender Identity Female 04/22/2021 9:13 AM DESIGNER Sexual Orientation Straight 04/22/2021 9: 13 AM DESIGNER documented as of this encounter Progress Notes * Keila Ibrahim RN - 09/29/2022 8:06 AM CDT Referral please Dr. Landen Rangel documented in this encounter Plan of Treatment Upcoming Encounters Date Type Department Care Team (Late Contact Info) Description 07/30/2025 3:00 PM CDT Office Visit [place] [facility] [address] [place] [address] Kjoo Montanez MD [facility]. [facility] [address] [place] [address] documented as of this encounter Visit Diagnoses Not on filedocumented in this encounter Care Teams Battery Container Tester Aluminum Relationship Specialty Start Date End Date Ingrid Clinton PA-C PCP - General PHYSICIAN INSIDE UPHOLSTERER 03/14/21 documented as of this encounter
--- OUTSIDE RECORDS SUMMARY | 2024-08-14 13:00 | XMS_ITS | Encounter Summary ---
Author Organization [facility] Address [address] [place] [address] Care Team Providers Care Roller Embosser Name Role Phone Ingrid Clinton PA-C Primary Care Provider +1- [phone] Encounter Details Date Type Department Care Team (Late st Contact Info) Description 08/05/2021 Hospital Orders Only [facility] Seafood Process Worker [address] [place] [address] Mata Jewell MD,PHD Social History Tobacco Use Types Packs/Day Years Used Date Smoking Tobacco: Never Smokeless Tobacco: Never Alcohol Use Standard Drinks/Week Comments Not Currently 0 (1 standard drink = 0.6 oz pur e alcohol) Comments Unknown Sex and Gender Information Value Date Recorded Sex Assigned at Not on file Legal Sex Female 5:49 PM CDT Gender Identity Female 04/22/2021 9:13 AM HOLDER PILE DRIVING Sexual Orientation Straight 04/22/2021 9: 13 AM HOLDER PILE DRIVING COVID-19 Exposure Response Date Recorded In the [...] CDT Talya Gomez , RN Active * [place] Suicide Severity Rating Scale (Screener/Recent Self-Report) Question [...] Description 07/30/2025 3:00 PM CDT Office Visit [place] [facility] [address] [place] [address] Kojo Montanez MD [address] [address] documented as of this encounter Visit Diagnoses Not on filedocumented in this encounter Care Teams Roller Embosser Relationship Specialty Start Date End Date Ingrid Clinton PA-C PCP - General PHYSICIAN MOBILE QA TESTER 03/14/21 documented as of this encounter
--- OUTSIDE RECORDS SUMMARY | 2024-08-14 13:00 | XMS_ITS | Encounter Summary ---
Author Organization [facility] Address [address] [place] [address] Care Team Providers Care Tax Map Technician Name Role Phone Ingrid Clinton PA-C Primary Care Provider +1- [phone] Encounter Details Date Type Department Care Team (Late st Contact Info) Description 12/14/2016 Abstract [facility] CONVERSION [address] [place] [address] , Generic ConversionMD Social History Tobacco Use Types Packs/Day Years Used Date Smoking Tobacco: Never Assessed Comments Unknown Sex and Gender Information Value Date Recorded Sex Assigned at Not on file Legal Sex Female 5:49 PM CDT Gender Identity Female 04/22/2021 9:13 AM PLASTIC JIG AND FIXTURE BUILDER Sexual Orientation Straight 04/22/2021 9: 13 AM PLASTIC JIG AND FIXTURE BUILDER documented as of this encounter Plan of Treatment Upcoming Encounters Date Type Department Care Team (Late st Contact Info) Description 07/30/2025 3:00 PM CDT [facility] [address] [place] [address] Kojo Montanez MD [address] [address] documented as of this encounter Visit Diagnoses Not on filedocumented in this encounter Care Teams Tax Map Technician Relationship Specialty Start Date End Date Ingrid Clinton PA-C PCP - General PHYSICIAN CONTROL SYSTEM COMPUTER SCIENTIST 03/14/21 documented as of this encounter
--- OUTSIDE RECORDS SUMMARY | 2024-08-14 13:00 | XMS_ITS | CONTINUITY OF CARE DOCUMENT ---
Author Name toya pittman Address Unknown Organization [facility] Address [address] [facility] [address] [place] [address] Phone [phone] Care Team Providers Care Cloth Winder Machine Operator Name Role Phone toya pittman Unavailable Unavailable INSURANCE PROVIDERS Payer name Policy type / Coverage type Brian red green party ID [facility] [id number] Other [id number]
--- OUTSIDE RECORDS SUMMARY | 2024-08-14 13:00 | XMS_ITS | Encounter Summary ---
Author Organization [facility] Address [address] [place] [address] Care Team Providers Care Pot Firer Name Role Phone Ingrid Clinton PA-C Primary Care Provider +1- [phone] Encounter Details Date Type Department Care Team (Late st Contact Info) Description 07/21/2023 Abstract [place] [facility] [address] [id number] Arpita Gilmore MA Social History Tobacco Use Types Packs/Day Years Used Date Smoking Tobacco: Never Smokeless Tobacco: Never Alcohol Use Standard Drinks/Week Comments Not Currently 0 (1 standard drink = 0.6 oz pur e alcohol) Comments Unknown Sex and Gender Information Value Date Recorded Sex Assigned at Not on file Legal Sex Female 5:49 PM CDT Gender Identity Female 04/22/2021 9:13 AM INTERNATIONAL MARKETING EXECUTIVE Sexual Orientation Straight 04/22/2021 9: 13 AM INTERNATIONAL MARKETING EXECUTIVE documented as of this encounter Plan of Treatment Upcoming Encounters Date Type Department Care Team (Late st Contact Info) Description 07/30/2025 3:00 PM CDT [facility] [place] [facility] [address] [place] [address] Kojo Montanez MD [facility]. [facility] [address] [place] [address] documented as of this encounter Procedures Procedure [...] on filedocumented in this encounter Care Teams Pot Firer Relationship Specialty Start Date End Date Ingrid Clinton PA-C PCP - General PHYSICIAN FINGERPRINT CLERK 03/14/21 documented as of this encounter
--- OUTSIDE RECORDS SUMMARY | 2024-08-14 13:00 | XMS_ITS | Clinical Summary ---
Author Organization [facility] Address [address] [place] [address] Care Team Providers Care Dial Buffer Name Role Phone Ingrid Clinton PA-C Primary Care Provider [phone]- [phone] Allergies No known active allergies Medications metoprolol succinate ER 25 MG 24 hr tablet Take 1 tablet (25 mg total) by mouth daily. 1 Active sertraline 50 MG tablet Take 1 tablet (50 mg total) by mouth daily. 1 Active probiotic Cap capsule Take 1 capsule by mouth daily with breakfast. Active Docusate Sodium 100 MG Tab Take 200 tablets by mouth daily. Active rivaroxaban (XARELTO) 20 MG Tab tablet Take 1 tablet (20 mg total) by mouth daily with supper. 90 tablet 3 5 Active magnesium oxide 400 MG tablet Take 1 tablet (400 mg total) by mouth daily. 1 025 Discontinued(P t. elected to discontinue med) Cyanocobalamin (VITAMIN B-12 OR) Take 5,000 mcg by mouth daily. 025 Discontinued(P t. elected to discontinue med) Biotin 1000 MCG Tab Take 1 tablet by mouth daily. 025 Discontinued(P t. elected to discontinue med) [place]-3 Fatty Acids (OMEGA-3 FISH OIL OR) Take 2,000 mg by mouth daily. 025 Discontinued(P t. elected to discontinue med) Cholecalcifero l (VITAMIN D3) 50 MCG (2000 UT) Tab Take by mouth daily. 025 Discontinued(P t. elected to discontinue med) multi vitamin/minera ls tablet Take 1 tablet by mouth daily. 025 Discontinued(P t. elected to discontinue med) Bisacodyl (LAXATIVE OR) Take by mouth daily. 025 Discontinued(P t. elected to discontinue med) Active Problems Problem Noted Date Diagnosed Date Atrial fibrillation ([facility]) 08/17/2020 Encounters Date Type Department Care Team Description 07/24/2024 3:00 PM CDT [facility] [address] [place] [address] Kojo Montanez MD Atrial Fibrillation; Cardiomyopathy; Lipids 07/24/2024 Travel 07/11/2024 [facility]phone [facility], [address] [address] Vicky De CMA Prior Authorization (xarelto) 06/15/2024 11:25 AM CDT Laboratory Only [facility] [address] [place] [address] Ingrid Clinton PA-C Defrain, Chad J, MD 06/15/2024 11:23 AM CDT - 06/15/2024 11:59 PM CDT Hospital Encounter [facility] [address] [place] [address] Ingrid Clinton PA-C Discharge Disposition: Home or Self Care (Routine Discharge) 06/15/2024 Orders Only [facility] [address] [place] [address] Ingrid Clinton PA-C 06/15/2024 Travel 06/08/2024 Travel [...] CDT Gender Identity Female 04/22/2021 9:13 AM INSURANCE VERIFICATION REPRESENTATIVE Sexual Orientation Straight 04/22/2021 9: 13 AM INSURANCE VERIFICATION REPRESENTATIVE Last Filed Vital Signs Vital Sign Reading Time Taken Comments Blood Pressure 120/70 07/24/2024 3:04 PM CDT Pulse 57 07/24/2024 3:04 PM CDT Temperature 37.1 C (98.7 F) 09/23/2021 1:15 PM CDT Respiratory Rate 24 09/23/2021 4:30 PM CDT Oxygen Saturation 95% 05/17/2023 3:08 PM INSURANCE VERIFICATION REPRESENTATIVE Inhaled Oxygen Concentration - - Weight 123.8 kg (273 lb) 07/24/2024 3:04 PM CDT Height 162.6 cm (5' 4 ) 07/24/2024 3:04 PM CDT Body Mass Index 46.86 07/24/2024 3:04 PM CDT Plan of Treatment Upcoming Encounters Date Type Department Care Team (Late st Contact Info) Description 07/30/2025 3:00 PM CDT [facility] [address] [place] [id number] Kojo Montanez MD [facility]. [address] [address] Health Maintenance Due Date Last Done Comments [...] - 986 PG/ML 06/15/2024 1:11 PM CDT [facility] 06/15/2024 11:2 9 AM CDT us Ingrid Clinton PA-C LABORATORY Final Resu lt [facility] [address] [place] [address], * (ABNORMAL) COMPREHENSIVE METABOLIC PANEL (06/15/2024 11:29 AM CDT) GLUCOSE 94 70 - 99 MG/DL 06/15/2024 12:09 PM CDT [facility] BUN 18 7 - 18 MG/DL 06/15/2024 12:09 PM CDT [facility] CREATININE S/P/B 0.89 0.55 - 1.02 MG/DL 06/15/2024 12:09 PM CDT [facility] SODIUM S/P/B 141 136 - 145 MMOL/L 06/15/2024 12:09 PM CDT [facility] POTASSIUM S/P/B 3.9 3.5 - 5.1 MMOL/L 06/15/2024 12:09 PM CDT [facility] CHLORIDE S/P/B 104 100 - 108 MMOL/L 06/15/2024 12:09 PM [facility] CO2 27.0 21 - 32 MMOL/L 06/15/2024 12:09 PM [facility] CALCIUM S/P/B 9.2 8.5 - 10.1 MG/DL 06/15/2024 12:09 PM [facility] BILIRUBIN TOTAL S/P/B 0.6 0.2 - 1.2 MG/DL 06/15/2024 12:09 PM [facility] TOTAL PROTEIN S/P/B 7.6 6.4 - 8.2 G/DL 06/15/2024 12:09 PM [facility] ALBUMIN S/P/B 4.0 3.4 - 5.0 G/DL 06/15/2024 12:09 PM [facility] AST 18 15 - 37 U/L 06/15/2024 12:09 PM [facility] ALT 33 14 - 55 U/L 06/15/2024 12:09 PM [facility] ALKALINE PHOSPHATASE S/P/B 104 50 - 136 U/L 06/15/2024 12:09 PM [facility] ANION GAP 10.0 5 - 15 MMOL/L 06/15/2024 12:09 PM [facility] BUN CREATININE RATIO 20.2 6 - 26 06/15/2024 12:09 PM [facility] A/G RATIO 1.1 1.0 - 2.0 RATIO 06/15/2024 12:09 PM [facility] GFR ESTIMATE 76(L) >90 ML/MIN/1.7 3 M2 06/15/2024 12:09 PM [facility] Comment: NOTE: eGFR is not calculated for patients <18 years of age. This is an estimated GFR calculation using the new CKD EPI creatinine equation without race and so does not require a correction factor for race. This estimated GFR should not be used for calculating drug doses. 06/15/2024 11:2 9 AM CDT us Ingrid Clinton PA-C LABORATORY Final Resu lt [facility] [address] [place] [address], * (ABNORMAL) LIPID PANEL (06/15/2024 11:29 AM CDT) CHOLESTEROL 205(H) <200.0 MG/DL 06/15/2024 12:09 PM CDT [facility] TRIGLYCERIDES 106 <150 MG/DL 06/15/2024 12:09 PM T [facility] HDL 54 >40.0 MG/DL 06/15/2024 12:09 PM T [facility] LDL (CALCULATED) 130(H) <100 MG/DL 06/15/2024 12:09 PM T [facility] NON HDL CHOLESTEROL 151(H) <130 MG/DL 06/15/2024 12:09 PM T [facility] CHOL/HDL RATIO 3.8 0.0 - 4.5 06/15/2024 12:09 PM T [facility] VLDL CALCULATION 21 5 - 55 MG/DL 06/15/2024 12:09 PM T [facility] LIPID INTERPRETATION 06/15/2024 12:09 PM T [facility] Comment: NIH CONCENSUS REPORT RECOMMENDATIONS: ADULT CHILD LOW RISK: CHOLESTEROL <200 <170 TRIGLYCERIDE <150 --- HDL >=60 --- LDL <100 <110 BORDERLINE: CHOLESTEROL 200-239 170-199 TRIGLYCERIDE 150-199 --- HDL 40-59 --- LDL 100-159 110-129 HIGH RISK: CHOLESTEROL >=240 >=200 TRIGLYCERIDE >=200 --- HDL <40 --- LDL >=160 >=130 06/15/2024 11:2 9 AM CDT us Ingrid Clinton PA-C LABORATORY Final Resu lt [facility] [address] [place] [address], * (ABNORMAL) CBC W/DIFF AUTOMATED (06/15/2024 11:29 AM CDT) WBC 4.69 4.4 - 11.0 x10'3/uL 06/15/2024 11:46 AM CDT [facility] RBC 4.44(L) 4.50 - 5.10 x10'6/uL 06/15/2024 11:46 AM CDT [facility] HGB 13.6 12.3 - 15.3 G/DL 06/15/2024 11:46 AM CDT [facility] HCT 40.9 35.9 - 44.6 % 06/15/2024 11:46 AM CDT [facility] MCV 92.1 80.0 - 96.0 FL 06/15/2024 11:46 AM CDT [facility] MCH 30.6 25.3 - 30.9 PG 06/15/2024 11:46 AM CDT [facility] MCHC 33.3 31.0 - 34.1 G/DL 06/15/2024 11:46 AM CDT [facility] RDW 13.2 12.4 - 15.1 % 06/15/2024 11:46 AM CDT [facility] PLT 164 151 - 353 x10'3/uL 06/15/2024 11:46 AM CDT [facility] MPV 9.6 9.6 - 12.0 FL 06/15/2024 11:46 AM CDT [facility] RBC MORPHOLOGY NORMAL 06/15/2024 11:46 AM CDT [facility] PLT MORPH. NORMAL 06/15/2024 11:46 AM CDT [facility] WBC MORPHOLOGY NORMAL 06/15/2024 11:46 AM CDT [facility] LYMPHOCYTES % 26.9 15.8 - 45.0 % 06/15/2024 11:46 AM CDT [facility] NEUTROPHILS % 64.6 42.1 - 71.9 % 06/15/2024 11:46 AM CDT [facility] MONOCYTES % 6.0 5.7 - 12.5 % 06/15/2024 11:46 AM CDT [facility] EOSINOPHILS 1.5 0.0 - 5.6 % 06/15/2024 11:46 AM CDT [facility] BASOPHILS 0.6 0.0 - 1.3 % 06/15/2024 11:46 AM CDT [facility] ABS. NEUTROPHILS 3.03 1.40 - 6.00 x10'3/uL 06/15/2024 11:46 AM CDT [facility] IMMATURE GRANS % 0.4 0.0 - 0.5 % 06/15/2024 11:46 AM CDT [facility] ABS. LYMPHOCYTES 1.26 0.80 - 4.70 x10'3/uL 06/15/2024 11:46 AM T [facility] 06/15/2024 11:2 9 AM CDT us Ingrid Clinton PA-C LABORATORY Final Resu lt [facility] [address] [place] [address], * THYROID STIM HORMONE TSH (06/15/2024 11:29 AM CDT) TSH 2.011 0.358 - 3.74 uIU/ML 06/15/2024 12:09 PM CDT [facility] Comment: HIGH DOSES OF BIOTIN MAY INTERFERE WITH THIS TEST RESULT. CORRELATION TO CLINICAL HISTORY AND PRESENTATION RECOMMENDED. 06/15/2024 11:2 9 AM CDT Ingrid Clinton PA-C LABORATORY Final Resu lt [facility] [address] [place] [address], [place] [phone] * VITAMIN D, 25 OH (06/15/2024 11:29 AM CDT) VITAMIN D 25 HYDROXY S/P/B 42 30 - 100 NG/ML 06/15/2024 1:17 PM CDT [facility] Comment: INTERPRETATION DEFICIENT <20 INSUFFICIENT 20-29 SUFFICIENT 30-100 06/15/2024 11:2 9 AM CDT Ingrid Clinton PA-C LABORATORY Final Resu lt [facility] [address] [place] [address], [place] [phone] * MAGNESIUM (06/15/2024 11:29 AM CDT) MAGNESIUM 1.9 1.8 - 2.4 MG/DL 06/15/2024 12:09 PM CDT [facility] 06/15/2024 11:2 9 AM CDT Ingrid Clinton PA-C LABORATORY Final Resu lt Performing Organization Address City/[facility]/ZIP Co de Phone Number [facility] [address] [place] [address], [place] [phone] * HEMOGLOBIN, GLYCOSYLATED (06/15/2024 11:27 AM CDT) HGB A1C 5.3 <5.7 % 06/15/2024 1:15 PM CDT [facility] Comment: INCREASED RISK OF DIABETES <5.7% NON-DIABETES 5.7-6.4% INCREASED RISK FOR FUTURE DIABETES > OR = 6.5 CONSISTENT WITH DIABETES STANDARDS OF MEDICAL CARE IN DIABETES-2010 DIABETES CARE, 33(SUPP 1): S1-S61,2010 ESTIMATED AVG GLUCOSE 105 mg/dL 06/15/2024 1:15 PM CDT [facility] 06/15/2024 11:2 7 AM CDT us Mitchel Garcia MD LABORATORY Final Result Performing Organization Address City/[facility]/ZIP Co de Phone Number [facility] [address] [place] [address], [place] [phone] from Last 3 Months Insurance [phone] (Work) [address] Advance Directives * Full Code (Latest Code Status on File) Date Activated Date Inactivated Comments 09/23/2021 12:44 PM 09/23/2021 6:59 PM * Full Code Date Activated Date Inactivated Comments 08/06/2021 3:32 PM 08/06/2021 7:15 PM Care Teams Dial Buffer Relationship Specialty Start Date End Date Ingrid Clinton PA-C PCP - General PHYSICIAN EMD TEACHER 03/14/21
--- OUTSIDE RECORDS SUMMARY | 2024-08-14 13:00 | XMS_ITS | Encounter Summary ---
Author Organization [facility] Address [address] [place] [address] Care Team Providers Care Motor Builder Assembler Name Role Phone Ingrid Clinton PA-C Primary Care Provider +1- [phone] Encounter Details Date Type Department Care Team (Late st Contact Info) Description 03/27/2021 Abstract [facility], [address] [address] Arpita Gilmore MA Social History Tobacco Use Types Packs/Day Years Used Date Smoking Tobacco: Never Assessed Comments Unknown Sex and Gender Information Value Date Recorded Sex Assigned at Not on file Legal Sex Female 5:49 PM CDT Gender Identity Female 04/22/2021 9:13 AM KILN LABOURER Sexual Orientation Straight 04/22/2021 9: 13 AM KILN LABOURER documented as of this encounter Plan of Treatment Upcoming Encounters Date Type Department Care Team (Late st Contact Info) Description 07/30/2025 3:00 PM CDT [facility] [address] [place] [address] Kojo Montanez MD [facility]. [address] [address] documented as of this encounter Procedures Procedure [...] Result * CBC (OUTSIDE LAB) (09/16/2020) Pathologist [facility] WBC 3.9 HGB 12.6 HCT 38.8 PLT 173 09/16/2020 Doc [facility] Abstract LAB-OUTSIDE/ABSTRACTED Final Result * THYROID STIM HORMONE, TSH (09/16/2020) TSH 2.78 09/16/2020 us Doc [facility] Abstract LABORATORY Final Result * MAGNESIUM (09/16/2020) Pathologist [facility] MAGNESIUM 1.8 09/16/2020 [facility] [...] on filedocumented in this encounter Care Teams Motor Builder Assembler Relationship Specialty Start Date End Date Ingrid Clinton PA-C PCP - General PHYSICIAN TOBACCO STRIPPER HAND 03/14/21 documented as of this encounter
== END 2024-08-14 12:55 | disposition home or self-care (01) ==
LOC: ANHIMG 12:55
PROVIDERS: PCP Physician Assistant Medical; Visit Provider Obstetrics & Gynecology
DX: R92.1 Mammographic calcification found on diagnostic imaging of breast (principal)
CPT/HCPCS: 77061; 77065; G0279

== ENCOUNTER 2024-09-07 09:59 | Emergency (ER) | payer OTHER, SELFPAY ==
--- NOTE | 2024-09-07 10:01 | ED_ITS ---
HPI - URI/Sore Throat General Chief Complaint: Upper Respiratory Infection Stated Complaint: Fever / bodyache Time Seen by Provider: 09/07/24 10:15 Source: patient Mode of arrival: ambulatory Limitations: no limitations History of Present Illness HPI Narrative: Natali is a 59-year-old female patient presenting to the clinic today with complaints of fever, chills, sweats, and body aches x1 day. She reports her symptoms started yesterday morning. Denies any URI symptoms, sore throat, chest pain, shortness of breath, abdominal pain, or any urinary symptoms. Highest temperature was a 100.9?. Patient is leaving for [place] tomorrow. Related Data Home Medications ?Medication ?Instructions ?Recorded ?Confirmed ?Last Taken ?Type sertraline 50 mg tablet 50 mg PO DAILY 07/01/20 07/04/24 Unknown History rivaroxaban 20 mg tablet (Xarelto) 20 mg DAILY 08/03/21 07/04/24 04/09/23 History Allergies Allergy/AdvReac Type Severity Reaction Status Date / Time No Known Allergies Allergy Unverified 07/04/24 15:42 Review of Systems Review of Systems: Pertinent positives per HPI. Patient denies any fever, chills, rash, headache, visual changes, dizziness, cough, shortness of breath, chest pain, palpitations, nausea, vomiting, diarrhea, constipation, abdominal pain, or any urinary issues. [facility] Past Medical History Medical History Calcification of left breast on mammography Sleep apnea Right medial knee pain Posterior tibial tendon dysfunction (PTTD) of right lower extremity Obesity History of atrial fibrillation Anxiety and depression Wears glasses Acquired pes planovalgus Posterior tibial tendon dysfunction (PTTD) of left lower extremity Surgical History Surgical History History of hemorrhoidectomy History of cardiac radiofrequency ablation (09/23/21) heart ablation, 09/24 History of gynecological procedure (02/21/08) Cervical mass - leiomyoma History of gynecological procedure (01/31/08) Cervical mass biopsy - granulation tissue History of colposcopy (~1999) colposcopy LGSIL Family History Family History Grandparent Cerebrovascular accident paternal grandfather Carcinoma of colon paternal grandfather Other Arthritis Asthma Depression Diabetes mellitus Hypertension Social History Social History Smoking status: Never smoker Second hand tobacco smoke exposure: No Alcohol intake: never Alcohol use details: 4 per year Substance use: never Substance use type: does not use Do You Feel Safe in your Home?: Yes Lack of Transportation: No Lack of Food: Never True Current Housing: I Have Housing Concerned About Future Housing: No Difficulty Paying Gas/Electric Bills: No Difficulty Paying for Meds: No Currently Unemployed: No Education: Master's Degree or Higher Difficulty w/ Childcare or Family Care: No Living arrangements: with family Additional living arrangements comments: Occupation/Education: occupation Additional occupation/education comments: teacher Gender identity (if verbalized by the patient): Female Sexual Orientation (if Verbalized by the Patient): Straight or Heterosexual Spiritual care concerns: No Comments At the time of my signature, I reviewed and agree with the nursing past medical, surgical, social, and family history. There is no relevant family history pertinent to the patient complaint. Exam Narrative: General: Well-developed, well nourished, in no apparent distress Head: Normocephalic, atraumatic Eyes: Pupils equally round and reactive to light bilaterally, EOM intact, sclera and conjunctive clear, no discharge, lids normal Ears: TMs intact and clear, ear canals clear, no drainage, grossly hearing normal. Nose: Nares patent, no discharge, no inflammation, no sinus tenderness. Mouth: Oral pharynx without lesions or masses, good dentition, MMM. Neck: Supple, trachea midline, no enlargement of anterior or posterior cervical nodes, no thyroid masses or goiter palpable. Cardio: Regular rate and rhythm, s1 and s2 normal, no murmur appreciated. Resp: Clear to auscultation bilaterally, no rhonchi, rales, wheezing or rubs Course Course Emergency Course: Portions of this record may have been created with voice recognition software. Level of Care: Express Care Visit Vital Signs Vital signs: Vital signs reviewed MDM - URI/Sore Throat MDM Narrative Medical decision making narrative: At the time of visit patient is resting comfortably on the exam table. Patient appears to be nontoxic. Labs: COVID and influenza testing was performed and was negative in the clinic today. Plan: I suspect patient has viral syndrome/fever with chills. Patient denies any URI symptoms, sore throat, abdominal pain, or any urinary symptoms. Recommend follow-up with her PCP or go to the emergency room if her symptoms worsen. Supportive measures were discussed with the patient and they voiced understanding discharge instructions and agrees to treatment plan. Return precautions reviewed Differential Diagnosis Differential diagnosis: Likely upper respiratory infection, otitis media, sinusitis, viral infection, bronchitis, influenza, pharyngitis and other (COVID) Discharge Plan Discharge Clinical Impression: Fever and chills Patient Disposition: Home Condition: Stable Instructions: Antibiotic Form, Fever in Adults (ED) Additional Instructions: COVID and influenza testing was negative in the clinic today. No signs of bacterial infection in the clinic today. Increase fluids and stay well hydrated Tylenol/motrin for pain/fever Flonase and OTC antihistamines as directed Vicks vapor rub to open sinuses Sinus rinses for congestion Cepacol spray, cough drops, throat lozenges, warm tea with honey/lemon, gargle salt water to soothe throat BRAT diet for diarrhea Clear liquids x 24 hours then advance as tolerated for nausea/vomiting Go to the ED if you develop a worsening in your condition- high fever not controlled by Tylenol or Motrin, dehydration, weakness, lethargy, shortness of breath, or chest pain. Follow up with your PCP in 3-5 days if symptoms persist. Patient Language: Polish Prescriptions: No Action Xarelto 20 mg tablet 20 mg DAILY sertraline 50 mg tablet 50 mg PO DAILY metoprolol succinate 25 mg tablet extended release 24 hr 25 mg PO DAILY Qty: 90 0RF Follow-up/Referrals: Ingrid Clinton PA-C [Primary Care Provider] - Time of Disposition: 10:39 Quality NIHSS Nursing Documentation ED NIHSS nursing documentation: reviewed/agree
[2024-09-07 10:07] VITALS: BP 123/72; PULSE 65; RESP 16; TEMP 36.6; O2SAT 99
[2024-09-07 10:36] LABS: EDCOVIDSCREEN Negative (Negative); EDINFLUASCREEN Negative (Negative); EDINFLUBSCREEN Negative (Negative)
--- OUTSIDE RECORDS SUMMARY | 2024-09-07 10:53 | XMS_ITS | CONTINUITY OF CARE DOCUMENT ---
Author Name toya pittman Address Unknown Organization [facility] Address [address] [place] [address] Phone [phone] Care Team Providers Care Hogshead Opener Name Role Phone toya pittman Unavailable Unavailable INSURANCE PROVIDERS Payer name Policy type / Coverage type Brian red democrat ID [facility] [id number] Other [id number]
--- OUTSIDE RECORDS SUMMARY | 2024-09-07 10:53 | XMS_ITS | Patient Health Record ---
Author Organization [facility] Address [address] [place] [address] Care Team Providers Care Rheumatology Nurse Name Role Phone Enrike Banda Primary Care Provider Reason For Referral No Information Medications Medication SIG (Take, Route, Fr equency, Duration) Notes Start Date End Date Status Lidocaine Viscous 2% 5 mL applied topica lly 4 times a day (before meals and at bedtime) Active azithromycin 250 mg 2 tablets today, the n 1 tablet per day orally once a day for 5 days Active Plan Of Treatment Pending Test Test Name Order Date Strep Screen 03/31/2016 Insurance Providers Payer Name Payer Address Payer Phone Subscriber Number Group Number Insured Name Patient Relationship to Insured Coverage Start Date Coverage End Date [facility] [address] [address] [place] [address] [id number] FLOR MARSHALL Self - patient is the insured Medical (General) History Medical History History ICD Code depression
--- OUTSIDE RECORDS SUMMARY | 2024-09-07 10:54 | XMS_ITS | CONTINUITY OF CARE DOCUMENT ---
Author Name toya pittman Address Unknown Organization [facility] Address [address] [place] [address] Phone [phone] Care Team Providers Care Tailor Men'S Ready To Wear Name Role Phone toya pittman Unavailable Unavailable INSURANCE PROVIDERS Payer name Policy type / Coverage type Brian red democrat ID [facility] [id number] Other [id number]
== END 2024-09-07 10:42 | disposition home or self-care (01) ==
PROVIDERS: Emergency Provider Nurse Practitioner Family; PCP Physician Assistant Medical
DX: R50.9 Fever, unspecified (principal); Z20.822 Contact with and (suspected) exposure to COVID-19; I48.91 Unspecified atrial fibrillation; E66.9 Obesity, unspecified; Z68.42 Body mass index [BMI] 45.0-49.9, adult; F41.9 Anxiety disorder, unspecified; F32.A Depression, unspecified
CPT/HCPCS: 87426; 87804; 99212; G0463